=== PATIENT | male | born 1995 | race Hispanic/Latino ===

== ENCOUNTER 2017-10-22 19:38 | Emergency (ER) | payer SELFPAY ==
--- NOTE | 2017-10-22 21:24 | RAD ---
CHEST TWO VIEWS: History: Chills and body aches. Comparison: None. FINDINGS: There is a patchy opacity projecting over the left lower lobe. No pneumothorax. No effusion. Cardiac silhouette and mediastinal contours are within normal limits. IMPRESSION: Patchy opacification of the left lower lobe lingula concerning for infection. Follow up recommended. POS: [facility]
[2017-10-22 21:27] LABS: #Eosinphils 0.2 thou/uL (0.0-0.7); #Lymphocytes 1.8 thou/uL (1.20-3.40); #Monocytes 0.6 thou/uL (0.11-0.59); #Neutrophils 4.6 thou/uL (1.40-6.50); %Basophils 0.5 % (0.0-1.0); %Eosinophils 2.3 % (0.0-10.0); %Lymphocytes 25.6 % (21.0-51.0); %Neutrophils 63.6 % (42.0-75.0); Hemoglobin 17.3 g/dL (14.0-18.0); Mean Corpuscular Hemoglobin 32.2 pg (27.0-31.0); Mean Corpuscular Volume 92.1 fl (80.0-94.0); Mean Platelet Volume 6.2 fL (7.4-10.4); Platelet Count 236 thou/uL (130-400); RBC Distribution Width 11.5 % (11.5-14.5); Red Blood Cell (RBC) Count 5.36 mill/uL (4.70-6.10); White Blood Cell (WBC) Count 7.2 thou/uL (4.8-10.8)
[2017-10-22] MEDS ORDERED: Ondansetron HCl/PF 4 MG/2 ML Vial ONE ×2 (21:36)
[2017-10-22 21:47] LABS: ALT (SGPT) 33 U/L (8-55); AST (SGOT) 28 U/L (5-34); Albumin 4.4 g/dL (3.5-5.0); Alkaline Phosphatase 82 U/L (40-150); Anion Gap 13 mmol/L (10-20); BUN (Urea Nitrogen) 8 mg/dL (8.9-20.6); Bilirubin, Total 0.6 mg/dL (0.2-1.2); Calc. Creatinine Clearance 0 mL/min (70-130); Calcium 9.3 mg/dL (7.8-10.44); Carbon Dioxide 25 mmol/L (22-29); Chloride 104 mmol/L (98-107); Estimated GFR-MDRD Greater than 90; Globulin 3.7 g/dL (2.4-3.5); Glucose 92 mg/dL (70-105); Protein, Total 8.1 g/dL (6.0-8.3); Sodium 138 mmol/L (136-145)
[2017-10-22] MEDS ORDERED: Acetaminophen 500 MG TAB ONE (21:47)
[2017-10-22 22:42] LABS: Bilirubin Negative (Negative); Blood, Urine Negative (Negative); Clarity CLEAR (Clear); Glucose, Urine (Dipstick) Negative (Negative); Leukocyte Negative (Negative); Nitrite Negative (Negative); Protein, Urine (Dipstick) Negative (Neg-Trace); Specific Gravity, Urine 1.006 (1.002-1.036); Urobilinogen 0.2 mg/dL (0.2-1.0); pH, Urine 6.5 (5.0-9.0)
[2017-10-25 13:19] LABS: LOG10 HIV-1 RNA 4.658 (.)
== END 2017-10-22 23:32 | disposition home or self-care (01) ==
LOC: ERS 19:38
DX: J18.9 Pneumonia, unspecified organism (principal); B20 Human immunodeficiency virus [HIV] disease; F17.210 Nicotine dependence, cigarettes, uncomplicated
CPT/HCPCS: 36415; 71046; 80053; 81003; 83605; 85025; 85048; 86359; 86360; 87040; 87086; 87536; 96361; 96374; 96375; J0696; J2405

== ENCOUNTER 2018-02-26 19:02 | Emergency (ER) | payer SELFPAY ==
[2018-02-26 19:45] LABS: #Basophils 0.1 thou/uL (0.0-0.2); #Eosinphils 0.2 thou/uL (0.0-0.7); #Lymphocytes 2.1 thou/uL (1.20-3.40); #Monocytes 0.4 thou/uL (0.11-0.59); #Neutrophils 2.4 thou/uL (1.40-6.50); %Basophils 1.2 % (0.0-1.0); %Eosinophils 4.6 % (0.0-10.0); %Lymphocytes 39.9 % (21.0-51.0); %Monocytes 7.8 % (0.0-10.0); %Neutrophils 46.5 % (42.0-75.0); Hemoglobin 16.8 g/dL (14.0-18.0); Mean Corpuscular HGB CONC 34.1 g/dL (32.0-36.0); Mean Corpuscular Hemoglobin 31.3 pg (27.0-31.0); Mean Corpuscular Volume 91.8 fL (78.0-98.0); Mean Platelet Volume 6.6 fL (7.4-10.4); Platelet Count 246 thou/uL (130-400); RBC Distribution Width 11.6 % (11.5-14.5); Red Blood Cell (RBC) Count 5.37 mill/uL (4.70-6.10); White Blood Cell (WBC) Count 5.2 thou/uL (4.8-10.8)
[2018-02-26 20:02] LABS: Albumin 4.5 g/dL (3.5-5.0); Alkaline Phosphatase 80 U/L (40-150); Anion Gap 16 mmol/L (10-20); Bilirubin, Total 0.5 mg/dL (0.2-1.2); Calcium 9.7 mg/dL (7.8-10.44); Carbon Dioxide 22 mmol/L (22-29); Chloride 107 mmol/L (98-107); Globulin 3.2 g/dL (2.4-3.5); Glucose 94 mg/dL (70-105); Potassium 3.8 mmol/L (3.5-5.1); Protein, Total 7.7 g/dL (6.0-8.3); Sodium 141 mmol/L (136-145)
[2018-02-26 20:03] LABS: BUN (Urea Nitrogen) 7 mg/dL (8.9-20.6)
[2018-02-26 20:04] LABS: AST (SGOT) 20 U/L (5-34)
[2018-02-26 20:05] LABS: ALT (SGPT) 22 U/L (8-55); Lipase 37 U/L (8-78)
[2018-02-26 20:13] LABS: Calc. Creatinine Clearance 0 mL/min (70-130); Estimated GFR-MDRD Greater than 90
[2018-02-26 21:16] LABS: Bilirubin Negative (Negative); Blood, Urine Negative (Negative); Clarity CLEAR (Clear); Glucose, Urine (Dipstick) Negative (Negative); Leukocyte Negative (Negative); Nitrite Negative (Negative); Protein, Urine (Dipstick) Negative (Neg-Trace); Specific Gravity, Urine 1.016 (1.002-1.036); pH, Urine 6.5 (5.0-9.0)
== END 2018-02-26 22:28 | disposition home or self-care (01) ==
LOC: ERS 19:02
DX: R10.9 Unspecified abdominal pain (principal); B20 Human immunodeficiency virus [HIV] disease; F17.210 Nicotine dependence, cigarettes, uncomplicated
CPT/HCPCS: 36415; 80053; 81003; 83690; 85025; 99283

== ENCOUNTER 2021-04-22 19:20 | Emergency (ER) | payer SELFPAY | END 2021-04-22 22:50 | disposition home or self-care (01) | LOC: ERS 19:20 | DX: B02.9 Zoster without complications (principal); M79.645 Pain in left finger(s); Z21 Asymptomatic human immunodeficiency virus [HIV] infection status; F17.210 Nicotine dependence, cigarettes, uncomplicated ==

== ENCOUNTER 2022-02-03 08:59 | Outpatient (CLI) | payer OTHER | END 2022-02-03 09:00 | disposition home or self-care (01) | LOC: RAD 08:59 | DX: C46.9 Kaposi's sarcoma, unspecified (principal) | CPT/HCPCS: 71046 ==

== ENCOUNTER 2022-12-07 18:14 | Emergency (ER) | payer SELFPAY | END 2022-12-07 19:47 | disposition left against medical advice (07) | LOC: ERS 18:14 | DX: Z53.21 Procedure and treatment not carried out due to patient leaving prior to being seen by health care provider (principal) ==

== ENCOUNTER 2023-03-30 22:10 | Emergency (ER) | payer SELFPAY | END 2023-03-31 00:07 | disposition left against medical advice (07) | LOC: ERS 22:10 | DX: Z53.21 Procedure and treatment not carried out due to patient leaving prior to being seen by health care provider (principal) ==

== ENCOUNTER 2023-05-01 14:00 | Observation (INO) | payer SELFPAY ==
[~2023-05-01 14:00] MED LIST: Iopamidol-370 76% 500 ML MDV (1 ML CHARGE) ONE
[2023-05-01] MEDS ORDERED: Tranexamic Acid 1,000 MG/10 ML VIAL ONE (15:39)
[2023-05-01] MEDS ORDERED: fentaNYL 50 mcg/mL 1 mL Vial ONE ×3 (15:40→21:38)
[2023-05-01 15:53] LABS: #Eosinphils 0.2 thou/uL (0.0-0.7); #Monocytes 0.4 thou/uL (0.11-0.59); #Neutrophils 3.1 thou/uL (1.40-6.50); %Basophils 0.5 % (0.0-1.0); %Eosinophils 3.5 % (0.0-10.0); %Lymphocytes 35.4 % (21.0-51.0); %Monocytes 7.3 % (0.0-10.0); Hematocrit 46.9 % (42.0-52.0); Hemoglobin 15.8 g/dL (14.0-18.0); Mean Corpuscular HGB CONC 33.7 g/dL (32.0-36.0); Mean Corpuscular Hemoglobin 32.7 pg (27.0-31.0); Mean Corpuscular Volume 97.1 fl (78.0-98.0); Mean Platelet Volume 8.9 fL (7.4-10.4); Platelet Count 310 10x3/uL (130-400); RBC Distribution Width 10.9 % (11.5-14.5); Red Blood Cell (RBC) Count 4.83 mill/uL (4.70-6.10); White Blood Cell (WBC) Count 5.8 10x3/uL (4.8-10.8)
[2023-05-01 16:17] LABS: ALT (SGPT) 21 U/L (8-55); AST (SGOT) 18 U/L (5-34); Albumin 4.6 g/dL (3.5-5.0); Alkaline Phosphatase 92 U/L (40-110); Anion Gap 11 mmol/L (10-20); BUN (Urea Nitrogen) 9 mg/dL (8.9-20.6); Bilirubin, Total 0.5 mg/dL (0.2-1.2); Calc. Creatinine Clearance 0 mL/min (70-130); Calcium 9.5 mg/dL (7.8-10.44); Carbon Dioxide 29 mmol/L (22-29); Chloride 104 mmol/L (98-107); Estimated GFR 107; Globulin 3.3 g/dL (2.4-3.5); Glucose 96 mg/dL (70-105); Potassium 4.5 mmol/L (3.5-5.1); Protein, Total 7.9 g/dL (6.0-8.3); Sodium 139 mmol/L (136-145)
[2023-05-01] MEDS ORDERED: CEFAZOLIN 2 GM VIAL ONE (17:37)
[2023-05-01] MEDS ORDERED: Lidocaine 1% w/Epinephrine 1:100K 20 ML VIAL ONE (18:37)
[2023-05-01] MEDS ORDERED: Morphine 4 MG/ML VIAL ONE (19:13)
[2023-05-01] MEDS ORDERED: Ondansetron ODT 4 MG TAB PO PRN (19:17)
[2023-05-01] MEDS ORDERED: TETANUS, DIPHTHERIA TOX,ADULT (TDVAX) 0.5 ML VIAL IM ONE (19:17)
[2023-05-01] MEDS ORDERED: Ondansetron PF 4 MG/2 ML Vial IVP PRN (19:17)
[2023-05-01] MEDS ORDERED: Dextrose 50% Abboject 50 ML SYRINGE SLOW IVP PRN (19:17)
[2023-05-01] MEDS ORDERED: Dextrose 5% in Water 1,000 ML IV PRN (19:17)
[2023-05-01] MEDS ORDERED: Glucagon 1 MG/ML KIT IM PRN (19:17)
[2023-05-01] MEDS ORDERED: Acetaminophen 325 MG TAB PO SCH (19:30)
[2023-05-01] MEDS ORDERED: Ibuprofen 200 MG TAB PO SCH (19:30)
[2023-05-01] MEDS: Famotidine 20 MG TAB PO SCH (21:00)
[2023-05-01] MEDS: traMADol HCl 50 MG TAB PO PRN (23:21)
[2023-05-01] MEDS ORDERED: Morphine 2 MG/ML VIAL SLOW IVP PRN (23:32)
[2023-05-02] MEDS: Acetaminophen 325 MG TAB PO SCH ×2 (05:26→12:02)
[2023-05-02] MEDS: traMADol HCl 50 MG TAB PO PRN (05:27)
[2023-05-02 05:30] LABS: #Eosinphils 0.2 thou/uL (0.0-0.7); #Monocytes 0.5 thou/uL (0.11-0.59); #Neutrophils 5.7 thou/uL (1.40-6.50); %Basophils 0.4 % (0.0-1.0); %Lymphocytes 15.2 % (21.0-51.0); %Neutrophils 75.3 % (42.0-75.0); Mean Corpuscular Hemoglobin 33.2 pg (27.0-31.0); Mean Corpuscular Volume 97.6 fl (78.0-98.0); Mean Platelet Volume 9.2 fL (7.4-10.4); Platelet Count 250 10x3/uL (130-400); Red Blood Cell (RBC) Count 3.82 mill/uL (4.70-6.10); White Blood Cell (WBC) Count 7.6 10x3/uL (4.8-10.8)
[2023-05-02 05:48] LABS: Hematocrit 37.3 % (42.0-52.0); Hemoglobin 12.7 g/dL (14.0-18.0)
[2023-05-02] MEDS ORDERED: Ibuprofen 200 MG TAB PO SCH (08:00)
[2023-05-02] MEDS: Famotidine 20 MG TAB PO SCH (08:15)
[2023-05-02] MEDS ORDERED: Non-Formulary Item 1 EACH (Bictegrav/Emtricit/Tenofov Ala 1 TAB Tab) PO SCH (09:00)
[2023-05-02] MEDS ORDERED: Sulfameth/Trimethoprim DS 800-160mg TAB PO SCH (09:00)
[2023-05-02] MEDS ORDERED: Bictegrav/Emtricit/Tenofov Ala 1 TAB PO SCH (09:00)
[2023-05-02 12:40] VITALS: BP 122/64; TEMP 98.1
== END 2023-05-02 12:40 | disposition left against medical advice (07) ==
LOC: ERS 14:00 → SURG A 19:21
PROVIDERS: ADMIT Surgery; ATTEND Surgery
DX: S61.412A Laceration without foreign body of left hand, initial encounter (principal); W26.0XXA Contact with knife, initial encounter
CPT/HCPCS: 12002; 36415; 80053; 85025; 86850; 86900; 86901; 96374; 96375; 96376; G0378; J2270; J2272; J3010; Q9967

== ENCOUNTER 2024-09-27 15:57 | Emergency (ER) | payer SELFPAY ==
[2024-09-27] MEDS ORDERED: Amoxicillin/Potassium Clav 875 MG TAB ONE (18:42)
[2024-09-27] MEDS ORDERED: HYDROcodone/Acetaminophen 5/325 mg Tablet ONE (18:43)
== END 2024-09-27 19:26 | disposition home or self-care (01) ==
LOC: ERS 15:57
DX: S91.135A Puncture wound without foreign body of left lesser toe(s) without damage to nail, initial encounter (principal); B20 Human immunodeficiency virus [HIV] disease; F17.210 Nicotine dependence, cigarettes, uncomplicated; W45.0XXA Nail entering through skin, initial encounter
CPT/HCPCS: 99283

== ENCOUNTER 2024-10-14 19:32 | Emergency (ER) | payer SELFPAY ==
[2024-10-14] MEDS ORDERED: Acetaminophen 500 MG TAB ONE (20:35)
[2024-10-14 21:40] LABS: #Basophils 0.03 10x3/uL (0.0-0.2); %Basophils 0.6 % (0.0-1.0); %Eosinophils 7.7 % (0.0-10.0); %Lymphocytes 32.1 % (21.0-51.0); %Monocytes 8.8 % (0.0-10.0); %Neutrophils 50.6 % (42.0-75.0); Hemoglobin 12.1 g/dL (14.0-18.0); Mean Corpuscular HGB CONC 33.6 g/dL (32.0-36.0); Mean Corpuscular Hemoglobin 31.2 pg (27.0-31.0); Mean Corpuscular Volume 92.8 fL (78.0-98.0); Mean Platelet Volume 10.3 fL (7.4-10.4); Platelet Count 227 10x3/uL (130-400); RBC Distribution Width 13.1 % (11.5-14.5); Red Blood Cell (RBC) Count 3.88 mill/uL (4.70-6.10)
[2024-10-14 21:47] LABS: ALT (SGPT) 20 U/L (Less than 45); AST (SGOT) 28 U/L (11-34); Alkaline Phosphatase 106 U/L (40-110); Anion Gap 13 mmol/L (10-20); BUN (Urea Nitrogen) 5 mg/dL (8.9-20.6); Bilirubin, Total 0.9 mg/dL (0.3-1.2); Calc. Creatinine Clearance 0 mL/min (70-130); Calcium 8.6 mg/dL (7.8-10.44); Carbon Dioxide 25 mmol/L (22-29); Chloride 109 mmol/L (98-107); Estimated GFR 123; Globulin 3.1 g/dL (2.4-3.5); Glucose 93 mg/dL (70-105); Potassium 3.6 mmol/L (3.5-5.1); Protein, Total 7.1 g/dL (6.0-8.3); Sodium 143 mmol/L (136-145)
== END 2024-10-14 22:11 | disposition left against medical advice (07) ==
LOC: ERS 19:32
DX: Z53.21 Procedure and treatment not carried out due to patient leaving prior to being seen by health care provider (principal)
CPT/HCPCS: 36415; 71046; 80053; 85025; 87428

== ENCOUNTER 2025-04-09 17:49 | Emergency (ER) | payer SELFPAY ==
[2025-04-09] MEDS ORDERED: Ondansetron PF 4 MG/2 ML Vial ONE (18:34)
[2025-04-09] MEDS ORDERED: Ketorolac Tromethamine 30 MG (1 mL) VIAL ONE (18:34)
[2025-04-09 18:46] LABS: #Basophils Less than 0.03 10x3/uL (0.0-0.2); #Eosinophils 0.22 10x3/uL (0.0-0.7); #Monocytes 0.44 10x3/uL (0.11-0.59); #Neutrophils 5.15 10x3/uL (1.40-6.50); %Basophils 0.3 % (0.0-1.0); %Eosinophils 3.3 % (0.0-10.0); %Lymphocytes 13.4 % (21.0-51.0); %Monocytes 6.5 % (0.0-10.0); %Neutrophils 76.4 % (42.0-75.0); Hematocrit 45.2 % (42.0-52.0); Hemoglobin 15.7 g/dL (14.0-18.0); Mean Corpuscular Hemoglobin 33.0 pg (27.0-31.0); Mean Corpuscular Volume 95.0 fL (78.0-98.0); Platelet Count 229 10x3/uL (130-400); Red Blood Cell (RBC) Count 4.76 mill/uL (4.70-6.10); White Blood Cell (WBC) Count 6.74 10x3/uL (4.8-10.8)
[2025-04-09 18:57] LABS: ALT (SGPT) 19 U/L (Less than 45); AST (SGOT) 34 U/L (11-34); Albumin 4.3 g/dL (3.1-4.5); Alkaline Phosphatase 99 U/L (40-110); Anion Gap 11 mmol/L (10-20); BUN (Urea Nitrogen) 8 mg/dL (8.9-20.6); Bilirubin, Total 0.7 mg/dL (0.3-1.2); Calc. Creatinine Clearance 0 mL/min (70-130); Calcium 8.3 mg/dL (7.8-10.44); Carbon Dioxide 24 mmol/L (22-29); Chloride 108 mmol/L (98-107); Globulin 2.7 g/dL (2.4-3.5); Glucose 95 mg/dL (70-105); Lipase 44 U/L (8-78); Potassium 3.8 mmol/L (3.5-5.1); Sodium 139 mmol/L (136-145)
== END 2025-04-09 20:17 | disposition home or self-care (01) ==
LOC: ERS 17:49
DX: B34.9 Viral infection, unspecified (principal); F17.210 Nicotine dependence, cigarettes, uncomplicated; Z55.6 Problems related to health literacy
CPT/HCPCS: 71045; 80053; 83690; 84484; 85025; 93005; 96361; 96374; 96375; J1885; J2405

== ENCOUNTER 2025-07-14 14:59 | Emergency (ER) | payer OTHER | END 2025-07-14 16:31 | disposition home or self-care (01) | LOC: ERS 14:59 | DX: J06.9 Acute upper respiratory infection, unspecified (principal); F17.210 Nicotine dependence, cigarettes, uncomplicated | CPT/HCPCS: 71045; 87428 ==